=== PATIENT | female | born 1970 | race Caucasian/White ===

== ENCOUNTER 2018-10-27 08:11 | Day surgery (SDC) | payer OTHER ==
[2018-10-27] MEDS ORDERED: FENTAnyl 50 MCG/ML VIAL (10:38)
[2018-10-27] MEDS ORDERED: MIDAZOLAM 1 MG/ML 2 ML INJ ×2 (10:38)
== END 2018-10-27 12:19 | disposition home or self-care (01) ==
LOC: GIL 08:11
DX: Z12.11 Encounter for screening for malignant neoplasm of colon (principal); K29.50 Unspecified chronic gastritis without bleeding; D12.5 Benign neoplasm of sigmoid colon; K44.9 Diaphragmatic hernia without obstruction or gangrene; K21.9 Gastro-esophageal reflux disease without esophagitis
CPT/HCPCS: 43239; 84703; 88305; 88312